=== PATIENT | female | born 1990 | race Caucasian/White ===

== ENCOUNTER 2022-01-10 01:54 | Emergency (ER) | payer SELFPAY ==
[2022-01-10 02:34] LABS: #Monocytes 0.7 10x3/uL (0.0-1.1); #Neutrophils 5.4 10x3/uL (1.5-8.4); %Basophils 0.4 % (0.0-2.0); %Eosinophils 0.3 % (0.0-6.0); %Monocytes 10.7 % (0.0-10.0); %Neutrophils 80.3 % (40.0-75.0); Hemoglobin 13.8 g/dL (12.0-15.5); Mean Corpuscular HGB CONC 34.8 g/dL (32.0-36.0); Mean Corpuscular Hemoglobin 27.8 pg (27.0-33.0); Mean Corpuscular Volume 79.8 fl (81.6-98.3); Mean Platelet Volume 10.7 fl (7.4-10.4); Platelet Count 199 10x3/uL (150-450); RBC Distribution Width 12.7 % (11.5-14.5); Red Blood Cell (RBC) Count 4.96 10x6/uL (3.90-5.03); White Blood Cell (WBC) Count 6.7 10x3/uL (3.5-10.5)
[2022-01-10 02:48] LABS: ALT (SGPT) 11 U/L (8-55); AST (SGOT) 13 U/L (5-34); Albumin 4.6 g/dL (3.5-5.0); Alkaline Phosphatase 48 U/L (40-110); Anion Gap 15 mmol/L (10-20); BUN (Urea Nitrogen) 13 mg/dL (7.0-18.7); Bilirubin, Total 0.4 mg/dL (0.2-1.2); Calc. Creatinine Clearance 0 mL/min (70-130); Calcium 9.6 mg/dL (7.8-10.44); Carbon Dioxide 23 mmol/L (22-29); Chloride 105 mmol/L (98-107); Estimated GFR 82; Globulin 2.8 g/dL (2.4-3.5); Glucose 126 mg/dL (70-105); Potassium 3.8 mmol/L (3.5-5.1); Protein, Total 7.4 g/dL (6.0-8.3); Sodium 139 mmol/L (136-145)
[2022-01-10 03:32] LABS: SARS-CoV-2 NAA Rapid Test DETECTED (NotDetected)
== END 2022-01-10 04:46 | disposition home or self-care (01) ==
LOC: CSHERS 01:54
DX: O98.511 Other viral diseases complicating pregnancy, first trimester (principal); U07.1 COVID-19; Z3A.01 Less than 8 weeks gestation of pregnancy
CPT/HCPCS: 71045; 80053; 84484; 84702; 85025; 85379; 93005

== ENCOUNTER 2024-07-03 03:50 | Inpatient (IN) | payer SELFPAY ==
[2024-07-03] MEDS: Lactated Ringer's 1,000 ML IV SCH (04:08)
[2024-07-03 04:09] VITALS: BMI 27.8
[2024-07-03] MEDS ORDERED: fentaNYL 50 mcg/mL 1 mL Vial SLOW IVP PRN (04:42)
[2024-07-03 04:43] LABS: Hematocrit 43.1 % (34.9-44.5); Hemoglobin 14.2 g/dL (12.0-15.5); Mean Corpuscular HGB CONC 32.9 g/dL (32.0-36.0); Mean Corpuscular Hemoglobin 26.8 pg (27.0-33.0); Mean Corpuscular Volume 81.5 fL (81.6-98.3); Mean Platelet Volume 11.3 fL (7.4-10.4); Platelet Count 197 10x3/uL (150-450); RBC Distribution Width 14.6 % (11.5-14.5); Red Blood Cell (RBC) Count 5.29 10x6/uL (3.90-5.03); White Blood Cell (WBC) Count 11.3 10x3/uL (3.5-10.5)
[2024-07-03] MEDS ORDERED: Tranexamic Acid 1,000 MG/10 ML VIAL IVP PRN (04:43)
[2024-07-03] MEDS ORDERED: Diphenoxylate HCl/Atropine Tablet PO PRN (04:45)
[2024-07-03] MEDS ORDERED: Methylergonovine 0.2 MG/ML VIAL IM PRN (04:45)
[2024-07-03] MEDS ORDERED: hydrALAZINE 20 MG/ML VIAL SLOW IVP PRN ×2 (04:45→10:13)
[2024-07-03] MEDS ORDERED: Lidocaine 1% (PF) 30 ML VIAL SC PRN (04:45)
[2024-07-03] MEDS ORDERED: Carboprost 250 MCG/ML AMP IM PRN (04:45)
[2024-07-03] MEDS ORDERED: Promethazine HCl 25 MG/ML VIAL IM PRN ×2 (04:45→05:24)
[2024-07-03] MEDS ORDERED: Ibuprofen 800 MG TAB PO PRN (04:45)
[2024-07-03] MEDS ORDERED: Acetaminophen 500 MG TAB PO PRN (04:45)
[2024-07-03] MEDS ORDERED: Ondansetron PF 4 MG/2 ML Vial IVP PRN ×2 (04:45→05:24)
[2024-07-03 05:04] LABS: HBsAg Index 0.26 S/CO (0-0.99); HIV (1/2) Antibody/Antigen Non-Reactive (NonReactive); HIV 1/2 INDEX 0.09 S/CO (<1.00); Hep B Surf Ag - L&D Non-Reactive S/CO (NonReactive)
[2024-07-03 05:05] LABS: Syphilis Antibody Nonreactive (Nonreactive); Syphilis Antibody Index 0.04 S/CO (<1.00 Non-Reactive)
[2024-07-03] MEDS: fentaNYL/Ropivacaine Epidural 100 ML ONE (05:17)
[2024-07-03] MEDS ORDERED: Acetaminophen 325 MG TAB PO PRN (05:24)
[2024-07-03] MEDS ORDERED: diphenhydrAMINE 50 MG/ML VIAL IVP PRN (05:24)
[2024-07-03] MEDS ORDERED: Moisturizing Cream (Eucerin) 113 GM JAR TOP PRN (05:24)
[2024-07-03] MEDS ORDERED: Lactated Ringer's 500 ML IV PRN (05:24)
[2024-07-03] MEDS ORDERED: Naloxone HCl 0.4 mg/ml Vial IVP PRN ×2 (05:24)
[2024-07-03] MEDS ORDERED: Communication Order-Pharmacy FS SCH (05:30)
[2024-07-03] MEDS ORDERED: fentaNYL 2 mcg/Ropivacaine 0.2% Epidural 100 ML CADD EPIDURAL SCH (05:30)
[2024-07-03] MEDS: ePHEDrine Sulfate 50 MG/10 ML VIAL SLOW IVP PRN (05:31)
[2024-07-03] MEDS: Oxytocin 30 units/NS 500 ML 500 ML IVPB SCH (07:47)
[2024-07-03] MEDS: Misoprostol 200 MCG TAB RC PRN (07:47)
[2024-07-03] MEDS ORDERED: Bisacodyl 10 MG SUPP PR PRN (10:13)
[2024-07-03] MEDS ORDERED: Benzocaine-Menthol 82.5 ML CAN TOP PRN (10:13)
[2024-07-03] MEDS ORDERED: HYDROcodone/Acetaminophen 5/325 mg Tablet PO PRN (10:13)
[2024-07-03] MEDS ORDERED: Milk Of Magnesia 30 ML UDCUP PO PRN (10:13)
[2024-07-03] MEDS ORDERED: Lanolin Ointment 7 GM TUBE TOP PRN (10:13)
[2024-07-03] MEDS ORDERED: Ferrous Sulfate 325 MG TAB PO SCH (10:45)
[2024-07-03] MEDS: Docusate 100 MG CAP PO SCH ×2 (13:44→21:35)
[2024-07-03] MEDS: Ferrous Sulfate 325 MG TAB PO SCH (13:44)
[2024-07-03] MEDS: Ibuprofen 800 MG TAB PO SCH ×2 (13:44→21:35)
[2024-07-03] MEDS: Prenatal Vitamin 1 TAB PO SCH (13:44)
[2024-07-04 04:06] LABS: Hematocrit 34.9 % (34.9-44.5); Hemoglobin 11.2 g/dL (12.0-15.5)
[2024-07-04] MEDS: Boostrix 0.5 ML (Tdap) VIAL (>/=7 yrs of age) IM ONE (10:48)
[2024-07-04] MEDS: Prenatal Vitamin 1 TAB PO SCH (10:48)
[2024-07-04 11:27] VITALS: BP 120/88; TEMP 98.1
== END 2024-07-04 12:45 | disposition home or self-care (01) | DRG 807 ==
LOC: CSHLD/OP 03:50 → CSHLD 04:21 → CSHPP 09:42
PROVIDERS: ADMIT Family Medicine; ATTEND Family Medicine
PROC: 10E0XZZ Delivery of Products of Conception, External Approach (ICD-10-PCS; principal; 2024-07-03)
PROC: 10907ZC Drainage of Amniotic Fluid, Therapeutic from Products of Conception, Via Natural or Artificial Opening (ICD-10-PCS; 2024-07-03)
DX: O48.0 Post-term pregnancy (principal); Z37.0 Single live birth; Z3A.40 40 weeks gestation of pregnancy; O77.0 Labor and delivery complicated by meconium in amniotic fluid; Z88.0 Allergy status to penicillin
CPT/HCPCS: 36415; 85014; 85018; 85027; 85461; 86780; 86850; 86900; 86901; 87340; 87389; 99285; J2590; J7120